=== PATIENT | female | born 1970 | race Caucasian/White ===

== ENCOUNTER → 2021-11-01 | Emergency (ER) | payer SELFPAY ==
[~2021-11-01] MED LIST: LORAZEPAM 1 MG TABLET ONE; LORazepam 2 MG/ML VIAL ONE; ONDANSETRON 4 MG/2 ML VIAL ONE; POTASSIUM 25 MEQ EFFERV TAB ONE
--- NOTE | 2021-11-01 10:46 | RAD REPORT ---
EXAM DESCRIPTION: CT - Facial Bones W/ Mpr - 11/01/2021 10:19 am CLINICAL HISTORY: Facial injury status post fall COMPARISON: None TECHNIQUE: Computed axial tomography of the face was obtained. Coronal and sagittal reconstruction w as performed. All CT scans are performed using dose optimization technique as appropriate and may include automated exposure control or mA/KV adjustment according to patient size. FINDINGS: A fracture is not seen. A TMJ dislocation is not noted. The globes are intact. Fluid within the sinuses is not seen. IMPRESSION: Negative for a facial fracture.
--- NOTE | 2021-11-01 10:46 | RAD REPORT ---
EXAM DESCRIPTION: CT - Head C Spine Mpr Wo Con - 11/01/2021 10:19 am CLINICAL HISTORY: Head and neck injury status post fall. Head and neck pain COMPARISON: None. TECHNIQUE: Computed axial tomography of the head and cervical spine was obtained. Sagittal and coronal reconstruction was performed. All CT scans are performed using dose optimization technique as appropriate and may include automated exposure control or mA/KV adjustment according to patient size. FINDINGS: An intracranial bleed is not seen. The ventricles are normal in caliber. 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 A cervical fracture is not visualized. No dislocation is noted. IMPRESSION: No acute intracranial abnormality is seen. A cervical fracture is not visualized. If the patient continues to have symptoms to suggest intracra nial /spinal cord pathology then MRI would be recommended
[2021-11-01 11:04] LABS: ALT/SGPT 28 U/L (12-78); AST/SGOT 12 U/L (15-37); Albumin 3.8 g/dL (3.4-5.0); Alkaline Phosphatase 106 U/L (45-117); BUN Blood Urea Nitrogen 5 mg/dL (7-18); Bicarbonate 26 mmol/L (21-32); Bilirubin Direct 0.1 mg/dL (0-0.2); Bilirubin Total 0.4 mg/dL (0.2-1.0); Glomerular Filtration Rate 75 ml/min (=/>90); Glucose Level 199 mg/dL (74-106); Potassium 3.3 mmol/L (3.5-5.1); Protein, Total 7.3 g/dL (6.4-8.2); Sodium Level 135 mmol/L (136-145)
[2021-11-01 11:14] LABS: Absolute Lymphocytes (CBC) 0.8 K/uL (0.7-4.9); Hematocrit 39.3 % (36.0-45.0); Lymphocytes % 6.9 % (15.3-44.8); MCV 93.1 fL (80-100); MPV 8.6 fL (7.6-11.3); RBC Red Blood Cell Count 4.22 M/uL (3.86-4.86)
[2021-11-01 11:19] LABS: Urine Blood Negative (Negative); Urine Glucose 2+ (Negative); Urine Protein 2+ (Negative); Urine Specific Gravity >=1.030 (1.005-1.030)
[2021-11-01 11:41] LABS: Barbiturates NEGATIVE (NEGATIVE); Benzodiazepines NEGATIVE (NEGATIVE); Cocaine NEGATIVE (NEGATIVE); METHAMPHETAM NEGATIVE (NEGATIVE); Methadone NEGATIVE (NEGATIVE); Opiates NEGATIVE (NEGATIVE); Phencyclidine NEGATIVE (NEGATIVE); THC Cannibis POSITIVE (NEGATIVE)
--- NOTE | 2021-11-01 17:23 | ER ---
Nurse's Notes [facility] Name: Brie Dutton Age: 51 yrs Sex: Female : 1970 Arrival Date: 11/01/2021 Time: 09:52 Bed 3 Private MD: Diagnosis: Intentional overdose;Suicidal ideations Presentation: 11/01 09:56 Chief complaint: EMS states: EMS reports pt being found in hotel room banging her head bangura on the table. suspect Pt over dose on seizure medication since bottle was found empty. pt presented to ED with AMS. Coronavirus screen: At this time, unable to obtain information related to travel outside the [place] Ebola Screen: Patient reports travel to Ebola-affected area in the 21 days before illness onset. Patient reports having traveled to: [place] to [place]. Initial Sepsis Screen: Does the patient meet any 2 criteria? HR > 90 bpm. Does the patient have a suspected source of infection? No. Patient's initial sepsis screen is negative. Risk Assessment: Do you want to hurt yourself or someone else? Patient reports no desire to harm self or others. Onset of symptoms was November 01, 2021. 09:56 Method Of Arrival: EMS: [facility] bangura 09:56 Acuity: EVONNE 2 bangura Triage Assessment: 09:59 General: Appears unkempt, Behavior is agitated, combative, restless. Pain: Unable to bangura use pain scale. Patient is disoriented. Neuro: Level of Consciousness is awake. Historical: - Allergies: 09:59 Unable to obtain; bangura - Home Meds: :59 lamotrigine 100 mg oral tab 1 tab once daily [Active]; bangura - PMHx: 09:59 Seizure; bangura - PSHx: 09:59 Unable to Obtain; bangura - Immunization history:: Adult Immunizations unknown. - Social history:: Smoking status: unknown. Assessment: 09:57 Reassessment: Poison control case # [id number]: expect agitation, tachycardia, possible jl7 seizures. Obtain tox. workup, EKG now and in 4 hours, if QRS ia >100 give bicarb; give 1 liter fluid bolus. Obs pt for minimum 8 hours or back to baseline. Vital Signs: 09:56 BP 127 / 105; Pulse 109; Resp 26; Temp 97.1(T); Pulse Ox 100% on R/A; Weight 102.06 kg; bangura Height 5 ft. 7 in. (170.18 cm); 11:11 BP 119 / 61; Pulse 87; Resp 19; Pulse Ox 96% on R/A; bangura 12:27 BP 104 / 78; Pulse 80; Resp 17; Pulse Ox 99% on R/A; bangura 15:40 BP 105 / 71; Pulse 88; Resp 19; Pulse Ox 97% on R/A; bangura 16:42 BP 123 / 69; Pulse 87; Resp 17; Pulse Ox 97% on R/A; bangura 09:56 Body Mass Index 35.24 (102.06 kg, 170.18 cm) bangura ED Course: 09:52 Patient arrived in ED. eb 09:53 Justice Reynolds NP is PHCP. pm1 09:53 Reza Rodgers MD is Attending Physician. pm1 09:56 Stephanie Patterson RN is Primary Nurse. bangura 09:59 Triage completed. bangura 09:59 Arm band placed on. bangura 10:07 EKG done, by ED staff, reviewed by Justice Reynolds NP. em1 10:20 CT Head C Spine In Process Unspecified. EDMS 10:20 CT Facial Bones W/O Con In Process Unspecified. EDMS 17:21 got permission from patient to call mother in [place] to update patient insurance eb information and to let her know she was here at this facility. Administered Medications: 10:01 Drug: NS 0.9% 1000 ml Route: IV; Rate: 1000 ml; Site: left antecubital; ll1 10:01 Drug: Ativan (LORazepam) 1 mg Route: IVP; Site: left antecubital; ll1 10:10 Follow up: Response: No adverse reaction bangura 10:10 Drug: Ativan (LORazepam) 1 mg Route: IVP; Site: left antecubital; bangura 10:10 Follow up: Response: No adverse reaction bangura 11:00 Drug: Zofran (Ondansetron) 4 mg Route: IVP; Site: left antecubital; jd3 Outcome: 17:22 ER care complete, transfer ordered by . pm1 Signatures: Dispatcher [employer] EDMS Albert Valdez em1 Justice Reynolds, FRANKIE [employer]OTHERM[employer] POWERPLANT MECHANIC HELPER pm1 Harish Hernández RN RN jl7 Damian Vasquez RN RN jd3 Raysa Telles Lynsay, RN RN ll1 Stephanie Patterson RN RN bangura Corrections: (The following items were deleted from the chart) Allergies: No Known Allergies; bangura bangura Home Meds: Unable to obtain; bangura bangura
--- NOTE | 2021-11-01 17:23 | EDPHYS ---
Physician Documentation [facility] Name: Brie Dutton Age: 51 yrs Sex: Female : 1970 Arrival Date: 11/01/2021 Time: 09:52 Bed 3 Private MD: ED Physician Reza Rodgers Historical: - Allergies: 11/01 09:59 Unable to obtain; bangura - Home Meds: 09:59 lamotrigine 100 mg oral tab 1 tab once daily [Active]; bangura - PMHx: 09:59 Seizure; bangura - PSHx: 09:59 Unable to Obtain; bangura - Immunization history:: Adult Immunizations unknown. - Social history:: Smoking status: unknown. Vital Signs: 09:56 BP 127 / 105; Pulse 109; Resp 26; Temp 97.1(T); Pulse Ox 100% on R/A; Weight 102.06 kg; bangura Height 5 ft. 7 in. (170.18 cm); 11:11 BP 119 / 61; Pulse 87; Resp 19; Pulse Ox 96% on R/A; bangura 12:27 BP 104 / 78; Pulse 80; Resp 17; Pulse Ox 99% on R/A; bangura 15:40 BP 105 / 71; Pulse 88; Resp 19; Pulse Ox 97% on R/A; bangura 16:42 BP 123 / 69; Pulse 87; Resp 17; Pulse Ox 97% on R/A; bangura 09:56 Body Mass Index 35.24 (102.06 kg, 170.18 cm) bangura MDM: 09:53 Patient medically screened. pm1 17:19 Data reviewed: vital signs. Data interpreted: Pulse oximetry: on room air is 97 %. pm1 Interpretation: normal. 17:19 Counseling: I had a detailed discussion with the patient and/or guardian regarding: the pm1 historical points, exam findings, and any diagnostic results supporting the discharge/admit diagnosis, lab results, radiology results, the need to transfer to another facility, [facility] does not immediately have the required specialist, psychiatrist. 11/01 09:58 Order name: Acetaminophen; Complete Time: 11:22 pm1 11/01 09:58 Order name: Basic Metabolic Panel; Complete Time: 11:22 pm1 11/01 09:58 Order name: CBC with Diff; Complete Time: 11:22 pm1 11/01 09:58 Order name: ETOH Level; Complete Time: 11:22 pm11/01 09:58 Order name: Hepatic Function; Complete Time: 11:22 pm11/01 09:58 Order name: PT-INR; Complete Time: 12:37 pm11/01 09:58 Order name: Ptt, Activated; Complete Time: 12:37 pm11/01 09:58 Order name: Salicylate; Complete Time: 11:22 pm11/01 09:58 Order name: Urine Drug Screen; Complete Time: 12:05 pm11/01 09:58 Order name: EKG; Complete Time: 09:59 pm11/01 09:58 Order name: EKG - Nurse/Tech; Complete Time: 10:02 pm11/01 09:58 Order name: IV Saline Lock; Complete Time: 10:02 pm11/01 09:58 Order name: Labs collected and sent; Complete Time: 10:02 pm11/01 10:01 Order name: CT Head C Spine; Complete Time: 10:47 pm11/01 10:02 Order name: CT Facial Bones W/O Con; Complete Time: 10:47 pm11/01 10:08 Order name: COVID-19 SARS RT PCR (Document "Date of Onset" if Symptomatic); Complete pm1 Time: 12:05 11/01 10:08 Order name: Seizure Precautions; Complete Time: 10:09 jl7 11/01 11:19 Order name: Urine --Ancillary (enter results); Complete Time: 12:05 eb 11/01 11:19 Order name: Urine Dipstick-Ancillary; Complete Time: 11:22 EDMS 11/01 14:10 Order name: EKG; Complete Time: 14:10 pm11/01 14:10 Order name: EKG - Nurse/Tech pm1 11/01 15:01 Order name: Diet Finger Food; Complete Time: 15:01 kr3 EC:04 Rate is 97 beats/min. Rhythm is regular. QRS [place] is Normal. QRS interval is normal at pm1 88 msec. No Q waves. T waves are Normal. No ST changes noted. Clinical impression: Abnormal EKG without significant change. Administered Medications: 10:01 Drug: NS 0.9% 1000 ml Route: IV; Rate: 1000 ml; Site: left antecubital; ll1 10:01 Drug: Ativan (LORazepam) 1 mg Route: IVP; Site: left antecubital; ll1 10:10 Follow up: Response: No adverse reaction bangura 10:10 Drug: Ativan (LORazepam) 1 mg Route: IVP; Site: left antecubital; bangura 10:10 Follow up: Response: No adverse reaction bangura 11:00 Drug: Zofran (Ondansetron) 4 mg Route: IVP; Site: left antecubital; jd3 Disposition Summary: 11/01/21 17:22 Transfer Ordered Accepting Physician: pm1 Transfer Location: Psych Facility pm1 Reason: Specialty pm1 Condition: Stable pm1 Problem: new pm1 Symptoms: have improved pm1 Diagnosis - Intentional overdose pm1 - Suicidal ideations pm1 Forms: - Medication Reconciliation Form pm1 - SBAR form pm1 Signatures: Dispatcher [employer] EDJustice Leach NP SUBSTATION MAINTENANCE TECHNICIAN pm1 Harish Hernández RN RN jl7 Davies, Jonathon, RN RN jd3 Lewis, Lynsay, RN RN 1 Stephanie Patterson RN RN bangura Corrections: (The following items were deleted from the chart) 10: 09:59 Allergies: No Known Allergies; bangura bangura 10:01 09:59 Home Meds: Unable to obtain; bangura bangura
[2021-11-02 08:27] LABS: Absolute Lymphocytes (CBC) 1.8 K/uL (0.7-4.9); Hematocrit 36.7 % (36.0-45.0); Lymphocytes % 15.1 % (15.3-44.8); RBC Red Blood Cell Count 3.95 M/uL (3.86-4.86)
[2021-11-02 08:57] LABS: Albumin 3.5 g/dL (3.4-5.0); Bilirubin Total 0.4 mg/dL (0.2-1.0); Potassium 3.3 mmol/L (3.5-5.1)
--- NOTE | 2021-11-03 09:05 | EKG ---
Test Date: 2021-11-01 Test Time: 14:56:45 Ux Developer Designer: BRIAN MEASUREMENT RESULTS: Intervals: Rate: 97 LA: 128 QRSD: 90 QT: 366 QTc: 464 [place]: P: 64 LA: 128 QRS: 80 T: -2 INTERPRETIVE STATEMENTS: Normal sinus rhythm ST & T wave abnormality, consider inferior ischemia Abnormal ECG Compared to ECG 11/01/2021 10:03:38 No significant changes Electronically Signed On 11-03-21 09:03:12 CDT by Edgard Souza
--- NOTE | 2021-11-03 09:06 | EKG ---
Test Date: 2021-11-01 Test Time: 10:03:38 Visual Coordinator: ALEX MEASUREMENT RESULTS: Intervals: Rate: 97 [place]: 128 QRSD: 88 QT: 376 QTc: 477 [place]: P: 66 [place]: 128 QRS: 75 T: 12 INTERPRETIVE STATEMENTS: Normal sinus rhythm ST & T wave abnormality, consider inferior ischemia Abnormal ECG No previous ECG available for comparison Electronically Signed On 11-03-21 09:03:24 CDT by Edgard Souza
== END ==
LOC: ER 09:51
DX: T42.6X2A Poisoning by other antiepileptic and sedative-hypnotic drugs, intentional self-harm, initial encounter (principal); Z20.822 Contact with and (suspected) exposure to COVID-19
CPT/HCPCS: 36415; 70450; 70486; 72125; 76377; 80048; 80076; 80307; 80320; 80329; 81003; 81025; 85025; 85610; 85730; 93005; J2405; U0003